=== PATIENT | male | born 1995 | race Two or more races ===

== ENCOUNTER 2021-12-20 10:33 | Emergency (ER) | payer SELFPAY ==
[2021-12-20] MEDS ORDERED: Acetaminophen 325 MG Tab PO ONE (11:31)
[2021-12-20] MEDS ORDERED: Ketorolac 30 MG/ML SDV IM ONE (12:35)
== END 2021-12-20 12:57 | disposition home or self-care (01) ==
LOC: MW.ED 10:33
DX: S06.0X0A Concussion without loss of consciousness, initial encounter (principal); S16.1XXA Strain of muscle, fascia and tendon at neck level, initial encounter; W22.09XA Striking against other stationary object, initial encounter; Y99.0 Civilian activity done for income or pay
CPT/HCPCS: 70450; 72040; 96372; 99284; A9270; J1885